=== PATIENT | female | born 1960 | race Caucasian/White ===

== ENCOUNTER 2022-05-21 06:56 | Outpatient (CLI) | payer OTHER, SELFPAY | END 2022-05-21 06:57 | disposition home or self-care (01) | LOC: OP CLINIC 06:57 | PROVIDERS: PCP Family Medicine; Visit Provider Internal Medicine | DX: Z12.11 Encounter for screening for malignant neoplasm of colon (principal); K57.30 Diverticulosis of large intestine without perforation or abscess without bleeding | CPT/HCPCS: 45378; J2250; J3010 ==

== ENCOUNTER 2022-06-03 09:05 | Outpatient (CLI) | payer OTHER, SELFPAY ==
--- NOTE | 2022-06-03 09:15 | CRLHL7_ITS ---
For Patients: As a result of the Century Cures Act, medical imaging exams and procedure reports are released immediately into your electronic medical record. You may view this report before your referring provider. If you have questions, please contact your health care provider. BILATERAL SCREENING MAMMOGRAM WITH COMPUTER-AIDED DETECTION AND TOMOSYNTHESIS TECHNIQUE: CC and MLO views were obtained. These mammographic images have been obtained using full-field digital technique. These mammographic images were interpreted with the benefit of computer-aided detection. Breast Tomosynthesis was used in this interpretation. COMPARISON FILM: 03/13/21, 04/06/19, 01/20/18. FINDINGS: The breasts are heterogeneously dense, which may obscure small masses IMPRESSION: There is no radiographic evidence for malignancy. ASSESSMENT: BI-RADS Category 1: Negative RECOMMENDATION: Routine screening mammogram in 1 year. A lay language report of this examination will be provided to the patient. Christiano Sheikh M.D. Diagnostic Radiologist [email or web address] Transcribed: 3:46 pm DW/Dictated by: Christiano Sheikh MD @ 06/03/2022 10:15:00 AM (Electronically Signed)
== END 2022-06-03 09:06 | disposition home or self-care (01) ==
LOC: MAMMO 09:06
PROVIDERS: PCP Family Medicine; Visit Provider Family Medicine
DX: Z12.31 Encounter for screening mammogram for malignant neoplasm of breast (principal); R92.2 Inconclusive mammogram
CPT/HCPCS: 77063; 77067

== ENCOUNTER 2023-05-24 07:42 | Outpatient (CLI) | payer OTHER, SELFPAY | END 2023-05-24 07:43 | disposition home or self-care (01) | LOC: NFLDREF 05-26 10:52 | PROVIDERS: PCP Family Medicine; Referring Provider Family Medicine; Visit Provider Family Medicine | DX: E78.5 Hyperlipidemia, unspecified (principal); R73.03 Prediabetes | CPT/HCPCS: 80053; 80061 ==

== ENCOUNTER 2023-10-27 10:03 | Outpatient (CLI) | payer MEDICAID, SELFPAY ==
--- NOTE | 2023-10-27 10:15 | CRLHL7_ITS ---
For Patients: As a result of the Century Cures Act, medical imaging exams and procedure reports are released immediately into your electronic medical record. You may view this report before your referring provider. If you have questions, please contact your health care provider. BILATERAL SCREENING MAMMOGRAM WITH COMPUTER-AIDED DETECTION AND TOMOSYNTHESIS TECHNIQUE: CC and MLO views were obtained. These mammographic images have been obtained using full-field digital technique. These mammographic images were interpreted with the benefit of computer-aided detection. Breast tomosynthesis was used in this interpretation. COMPARISON FILM: 06/03/22, 03/13/21, 04/06/19. FINDINGS: There are scattered areas of fibroglandular density. IMPRESSION: There is no radiographic evidence for malignancy. ASSESSMENT: BI-RADS Category 1: Negative RECOMMENDATION: Routine screening mammogram in 1 year. A lay language report of this examination will be provided to the patient. CHRISTIANO CHADWICK M.D. Diagnostic Radiologist [email or web address] Transcribed: 10/28/2023, 1:[address]/Dictated by: Christiano Chadwick MD @ 10/28/2023 12:44:00 PM (Electronically Signed)
== END 2023-10-27 10:04 | disposition home or self-care (01) ==
LOC: MAMMO 10:04
PROVIDERS: PCP Family Medicine; Visit Provider Family Medicine
DX: Z12.31 Encounter for screening mammogram for malignant neoplasm of breast (principal)
CPT/HCPCS: 77063; 77067

== ENCOUNTER 2024-09-10 08:10 | Outpatient (CLI) | payer MEDICAID, SELFPAY ==
--- OUTSIDE RECORDS SUMMARY | 2024-09-12 13:45 | XMS_ITS | Clinical Summary ---
Author Organization [facility] Address [place], [place] [address] Care Team Providers Care Detective [employer] Name Role Phone Winifred Arzate MD Primary Care Provide r Allergies No known active allergies Medications No known medications Immunizations Name Administration Dates Next Due Tdap 04/29/2009 Social History Tobacco Use Types Packs/Day Years Used Date Smoking Tobacco: Never Alcohol Use Standard Drinks/Week Comments Yes 0 (1 standard drink = 0.6 oz pur e alcohol) Sex and Gender Information Value Date Recorded Sex Assigned at Not on file Gender Identity Not on file Sexual Orientation Not on file Obstetrics History Last Filed Vital Signs Vital Sign Reading Time Taken Comments Blood Pressure 121/64 06/06/2014 2:54 PM CDT Pulse 62 06/06/2014 3:33 PM CDT Temperature 36.9 C (98.4 F) 06/06/2014 2:31 PM CDT Respiratory Rate 18 06/06/2014 2:31 PM CDT Oxygen Saturation 98% 06/06/2014 3:33 PM CDT Inhaled Oxygen Concentration - - Weight 57.2 kg (126 lb) 04/07/2012 7:12 AM CDT Height 160 cm (5' 3) 04/04/2012 11:22 AM CDT Body Mass Index 22.32 04/04/2012 11:22 AM CDT Plan of Treatment Not on file Advance Directives * Full Code (Latest Code Status on File) Date Activated Date Inactivated Comments 04/06/2012 4:02 PM 04/07/2012 7:31 AM * Full Code Date Activated Date Inactivated Comments 04/05/2012 7:33 AM 04/06/2012 4:02 PM Care Teams [employer] Relationship Specialty Start Date End Date Winifred Arzate MD PCP - General Family Practice 06/06/14
== END 2024-09-10 08:11 | disposition home or self-care (01) ==
LOC: NFLDREF 09-12 13:42
PROVIDERS: PCP Family Medicine; Referring Provider Family Medicine; Visit Provider Family Medicine
DX: Z00.00 Encounter for general adult medical examination without abnormal findings (principal); E78.5 Hyperlipidemia, unspecified; R53.83 Other fatigue; R73.03 Prediabetes
CPT/HCPCS: 80053; 80061

== ENCOUNTER 2024-11-19 13:54 | Outpatient (CLI) | payer OTHER, SELFPAY | END 2024-11-19 13:55 | disposition home or self-care (01) | LOC: MAMMO 13:54 | PROVIDERS: PCP Family Medicine; Visit Provider Family Medicine | DX: Z12.31 Encounter for screening mammogram for malignant neoplasm of breast (principal); R92.333 Mammographic heterogeneous density, bilateral breasts | CPT/HCPCS: 77063; 77067 ==

== ENCOUNTER 2024-12-24 08:00 | Outpatient (CLI) | payer OTHER, SELFPAY | END 2024-12-24 08:01 | disposition home or self-care (01) | LOC: NFLDREF 12-25 00:27 | PROVIDERS: PCP Family Medicine; Referring Provider Family Medicine; Visit Provider Family Medicine | DX: E78.5 Hyperlipidemia, unspecified (principal) | CPT/HCPCS: 80061 ==